=== PATIENT | female | born 1960 | race Caucasian/White ===

== ENCOUNTER → 2017-09-28 | Day surgery (SDC) | payer OTHER ==
[~2017-09-28] VITALS: Ht 147.3 cm; Wt 72.0 kg
[~2017-09-28] MED LIST: ACETAMINOPHEN/HYDROcodone 325 MG/5 MG TAB ONE; BUPIVACAINE HCL PF 0.5% 30 ML VIAL ONE; CHLORHEXIDINE GLUCONATE 2 % 1 PACK (2 CLOTHS) TOPICAL PRN; CHLORHEXIDINE GLUCONATE 4% SOLN 120 ML BTL TOPICAL SCH; DULO1CAP3 PO; GABA300C5 PO; IBUP-232 PO; KETOROLAC TROMETHAMINE 30 MG/ML (IVP) VIAL ONE; LACTATED RINGER'S 1000 ML IV PRN; METOPROLOL TARTRATE 25 MG TAB PO PRN; POVIDONE IODINE 5% (ANTISEPSIS KIT) 4 APPLICATIONS EACH NARE PRN; PRAV20TA2 PO; RANI150T PO; SODIUM CHLORID 0.9% 500 ML IV PRN; diphenhydrAMINE HCL 50 MG/ML VIAL ONE
[2017-09-28 14:25] VITALS: TEMP 98.3
--- NOTE | 2017-09-28 15:43 | MP ---
cc: MELE BARRON M.D. DATE OF SURGERY: 09/28/[address] Mele Barron. PREOPERATIVE DIAGNOSIS Soft tissue tumor, ulnar left wrist. 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 DETAILS OF PROCEDURE The patient was placed on the operating table in the supine position and adequate general anesthesia was administered by the anesthesiologist. The left wrist and hand and forearm were prepped and draped in the usual sterile fashion. An Esmarch bandage was used to exsanguinate the upper extremity and a pneumatic tourniquet was inflated at the level of the proximal arm to 250 mmHg. A longitudinal incision was made over the ulnar border of the wrist and extended for approximately 1-1/2 inches where there was palpable soft tissue mass loculated in three different areas. The incision began just at the level of the tip of the ulna styloid. The incision was carried down to the subcutaneous tissue and down to the underlying tendon sheath which appeared to be adhered to both the tendon and synovial tissue. Using sharp and blunt dissection and careful avoidance of injury to the tendons I was able to separate a thick soft tissue mass which had some fluid accumulation within it surrounding the extensor carpi ulnaris and extensor digital tendon to the little finger. The dissection was carried down all the way to the joint level. A thick soft tissue mass was circumferentially excised. None of it caused any bleeding. It was also not filled with any gelatinous fluid and therefore would not be considered a ganglion. The tendons were then further debrided of adhesions and the sheath along the ulnar border was left open and the tendons now appeared to be gliding satisfactorily without impingement. Synovectomy was carried down all the way to the joint space and pulled out from the joint itself. The synovium did have the appearance of being pannus, suggestive also of possible rheumatoid disease. The specimen was sent for pathological identification. After thorough irrigation with normal saline solution the skin edges were re-approximated with simple interrupted sutures of 4-0 nylon. Xeroform gauze was applied over the wound and a bulky dressing applied over this, following which the tourniquet was deflated and examination of the fingers revealed adequate return of circulation. Hemostasis was accomplished with electrocautery and no excessive bleeding was encountered. Care was taken to avoid retraction of nerve structures. The tourniquet was deflated after 23 minutes. The procedure was tolerated well and the patient was transferred to the recovery room in satisfactory condition. MD ELLEN Mccrary/JESUS /2:14 PM /3:19 PM
[2017-09-28 15:45] VITALS: BP 118/67; PULSE 71; RESP 16; O2SAT 97
== END | disposition home or self-care (01) ==
LOC: PHSDC 10:02
PROVIDERS: ATTEND Orthopaedic Surgery
DX: M65.832 Other synovitis and tenosynovitis, left forearm (principal); J45.909 Unspecified asthma, uncomplicated; K21.9 Gastro-esophageal reflux disease without esophagitis; B19.20 Unspecified viral hepatitis C without hepatic coma
CPT/HCPCS: 01810; 25076; 25105; 88305; J1200; J1885; J7120

== ENCOUNTER 2018-09-26 05:28 | Inpatient (IN) ==
[2018-09-26] MEDS ORDERED: Metoprolol Tartrate 25 MG Tablet PO ONE (06:15)
[2018-09-26] MEDS ORDERED: Chlorhexidine Gluconate 2% 1 Pack (2 Cloths) TOPICAL ONE (06:15)
[2018-09-26] MEDS ORDERED: Sodium Chlor 0.9% Inj 500 ML IV.CONT ONE (06:15)
[2018-09-26] MEDS ORDERED: Chlorhexidine 4% Topical 120 APPLIC/120 ML Bottle TOPICAL SCH (06:15)
[2018-09-26] MEDS ORDERED: Bupivacaine 0.5% Inj 50 ML MDV Vial ONE (06:23)
[2018-09-26] MEDS ORDERED: Sodium Chloride 0.9% 2 ML Flush PRN IV.FLUSH (06:24)
[2018-09-26] MEDS ORDERED: fentaNYL Citrate Inj 100 MCG/2 ML Ampul ONE (06:25)
[2018-09-26] MEDS ORDERED: Famotidine PF Inj 20 MG/2 ML Vial ONE (06:25)
[2018-09-26] MEDS ORDERED: Vancomycin Inj 1,000 MG in Sodium Chlor 0.9% Inj 250 ML IV.SIG SCH (07:00)
[2018-09-26] MEDS ORDERED: SODIUM CHLOR 0.9% IV.SIG SCH ×2 (07:00→09:14)
[2018-09-26] MEDS ORDERED: TRANEXAMIC ACID IV.SIG SCH ×2 (07:00→09:14)
[2018-09-26] MEDS ORDERED: ceFAZolin 2 GM Premix Inj 2 GM/50 ML PIGGYBACK IV.SIG SCH (07:00)
[2018-09-26] MEDS ORDERED: Aluminum/Magnesium/Simethacone Susp 30 ML UDC PO PRN (07:15)
[2018-09-26] MEDS ORDERED: Bisacodyl 10 MG Supp RECTAL PRN (07:15)
[2018-09-26] MEDS ORDERED: HYDROmorphone PF Inj 1 MG/ML Ampul IV.PUSH PRN (07:15)
[2018-09-26] MEDS ORDERED: Post-op Orders (for Pharmacy) OTHER STA (07:15)
[2018-09-26] MEDS ORDERED: Sodium Chloride 0.9% 2 ML Flush BID IV.FLUSH SCH (09:00)
--- NOTE | 2018-09-26 09:32 | P.OP ---
- Preoperative Diagnosis (1) Primary osteoarthritis, right shoulder - Postoperative Diagnosis (1) Primary osteoarthritis, right shoulder Date of procedure: 09/26/18 Procedure: Right total shoulder arthroplasty Implants: Arthrosis surface 46 x 50 humeral head with a 12 mm post and a double cemented glenoid component Anesthesia: TATA, [facility] Surgeon: Mulugeta Nguyen MD Propagator: Leo Weiss Estimated blood loss (mL): 100 Operation and Findings: The first aid officer is an advanced registered nurse practitioner. His skill set is medically necessary for the performance of the operation. The patient was brought to the operating room after having received an interscalene block in the preop holding area. She was placed under general anesthesia. The right upper extremity was draped and prepped in usual sterile fashion with the patient in the beachchair position. IV antibiotics were given. Timeout was completed. An anterior approach to the shoulder was made through the deltopectoral interval with the cephalic vein mobilized medially. We coagulated deep crossing vein. There was a fairly large deep crossing vein just superior to the tip of the coracoid process that was left intact. We tenodesed the biceps tendon at the pectoralis insertion. We also placed a tag stitch at the mid bicipital groove. We then proceeded with takedown of the subscapularis tendon and capsule as a single layer. The severe arthritis was noted. The rotator cuff was noted to be intact. A small remnant biceps tendon was removed. We dislocated the shoulder anteriorly and measured the humeral head. This measured for a 46/50 humeral head. We then proceeded to place our guidepin and then overreamed this and then remove additional osteophytes. A Fukuda retractor was used to subluxate the humeral head posteriorly and the glenoid centering pin guide was used for a double glenoid component. We proceeded with 15 mm reamer and then the 20 mm reamer then the offset guide was used and then the superior 15 mm reamer was used. We placed our center peg holes and did our trial reduction excellent anatomic seating of the prosthesis was noted. Pulse lavage antibiotic irrigation. Cement was mixed. The glenoid component was placed into an anatomic position and the cement was allowed to harden. We irrigated out copious amounts of irrigation injected long-acting Marcaine. We then proceeded with our trial humeral head component and then fixated this and then proceeded with placement of our central drill and reaming and then our 12 mm post was fixated with excellent fixation. Then we impacted our final humeral head with excellent fixation. The shoulder was reduced. Excellent range of motion and stability. We proceeded to make drill holes in the anterior neck and anatomically repair the subscapularis tendon. And then we closed the rotator interval which had been open. We proceeded closed in layers of absorbable suture. Subcuticular on the skin. Steri-Strips applied. Patient was awoken and returned to recovery room in stable condition.
[2018-09-26] MEDS ORDERED: *morphine SULFATE 4 MG/ML PERIprocedure ONLY ONE (09:48)
[2018-09-26] MEDS: ceFAZolin 1 GM Premix Inj 1 GM/50 ML FROZ.PIGGY IV.SIG SCH ×2 (12:58→18:26)
--- NOTE | 2018-09-26 13:23 | XR ---
EXAM DATE: 09/26/2018 12:43 PM EST AGE/SEX: 58 years / Female INDICATIONS: Post right shoulder arthroplasty CLINICAL DATA: This is the patient's initial encounter. Patient reports that signs and symptoms have been present for 1 day and indicates a pain score of 0/10. MEDICAL/SURGICAL HISTORY: Arthritis. None. COMPARISON: [facility], XR SHOULDER (MIN 4 VIEWS), RIGHT, 08/04/2015. . FINDINGS: The patient is post right shoulder arthroplasty. Orthopedic hardware is in excellent position. The al ignment is anatomic. CONCLUSION: Orthopedic hardware in excellent position. Electronically signed by: Loi Ca MD 09/26/2018 1:22 PM EST
[2018-09-26] MEDS: oxyCODONE/Acetaminophen 10/325 Tablet PO PRN (20:17)
[2018-09-26] MEDS: Senna/Docusate Sodium 8.6/50 MG Tablet PO SCH (23:02)
[2018-09-27] MEDS: ceFAZolin 1 GM Premix Inj 1 GM/50 ML FROZ.PIGGY IV.SIG SCH (00:50)
[2018-09-27 06:02] LABS: Hematocrit 31.3 % (35.0-46.0); Hemoglobin 10.5 gm/dL (11.6-15.3)
[2018-09-27] MEDS: oxyCODONE/Acetaminophen 10/325 Tablet PO PRN ×2 (06:07→11:27)
[2018-09-27] MEDS: Senna/Docusate Sodium 8.6/50 MG Tablet PO SCH ×2 (08:56→09:12)
[2018-09-27 09:10] VITALS: BP 133/64; PULSE 69; RESP 19; TEMP 98.5; O2SAT 97
--- NOTE | 2018-09-27 19:02 | P.PNOP ---
Subjective Interval history: Shoulder pain under control Physical Exam Vital signs: Vital Signs 09/26/18 20:00 09/27/18 00:13 09/27/18 03:51 Temperature 98.4 F 98.3 F 98.1 F Pulse Rate 85 78 86 Respiratory Rate 16 16 16 Blood Pressure 124/68 110/54 L 108/52 L Pulse Oximetry 93 L 92 L 94 L 09/27/18 07:55 Temperature 98.5 F Pulse Rate 69 Respiratory Rate 19 Blood Pressure 133/64 Pulse Oximetry 97 Intake & Output 09/26/18 09/27/18 09/27/18 18:59 06:59 18:59 Intake Total 3510.32 / 3510.32 1200 / 1200 Output Total 150 / 150 Balance 3360.32 / 3360.32 1200 / 1200 Weight 73.2 kg 71.4 kg Intake: IV 457.32 / 457.32 100 / 100 Cyklokapron Inj 732 MG In NS 107.32 / 107.32 Inj 100 ML @ 200 mls/hr IV.SIG ONCE SANJEEV Rx#:[id number] Vancomycin Inj 1,000 MG In NS 250 / 250 Inj 250 ML @ 250 mls/hr IV.SIG ORDER DEPARTMENT SUPERVISOR SANJEEV Rx#:[id number] Ancef 1 GM Premix Inj 1 gm In 50 / 50 100 / 100 50 ml @ 100 mls/hr IV.SIG Q6H SANJEEV Rx#:[id number] Ancef 2 GM Premix Inj 2 gm In 50 / 50 50 ml @ 100 mls/hr IV.SIG ORDER DEPARTMENT SUPERVISOR SANJEEV Rx#:[id number] Oral 800 / 800 1100 / 1100 Oral Supplement 960 / 960 Anesthesia Amount 1293 / 1293 Output: Estimated Blood Loss 150 / 150 Other: # Voids 3 6 Date of Last Bowel Movement 09/26/18 # Bowel Movements 1 - Constitutional no acute distress Comments: Right shoulder dresing clean dry and intact neuro intact vascular intact Results - Labs CBC & Chem 7: 09/27/18 05:04 Laboratory Results - last 24 hr 09/27/18 05:04 Hgb 10.5 L Hct 31.3 L - Imaging Shoulder xrays show good alignment Assessment and Plan - Ortho Post Op Day # 1 (Right total shoulder) - Assessment and Plan Clinically doing better than expected Ok to D/C home Percocet for pain Shoulder rehab Follow up as scheduled
== END 2018-09-27 12:16 | disposition home health service (06) ==
LOC: HSDI 05:28 → N06 13:24
PROVIDERS: ADMIT Orthopaedic Surgery Sports Medicine; ATTEND Orthopaedic Surgery Sports Medicine